=== PATIENT | male | born 1965 ===

== ENCOUNTER 2019-04-14 10:23 | Emergency (ER) | payer OTHER ==
[~2019-04-14] VITALS: Ht 172.7 cm; Wt 77.1 kg
[2019-04-14] MEDS ORDERED: CHLORPROMAZINE25 MG (17:29)
== END 2019-04-14 11:56 | disposition home or self-care (01) ==
LOC: ER 10:23
DX: R06.6 Hiccough (principal)

== ENCOUNTER 2019-04-14 16:55 | Emergency (ER) | payer OTHER ==
[~2019-04-14] VITALS: Ht 172.7 cm; Wt 77.1 kg
[2019-04-14] MEDS ORDERED: CHLORPROMAZINE25 MG (17:29)
== END 2019-04-15 20:03 | disposition home or self-care (01) ==
LOC: ER 16:55
DX: R06.6 Hiccough (principal)